=== PATIENT | male | born 1985 | race Hispanic/Latino ===

== ENCOUNTER 2017-09-10 01:55 | Emergency (ER) | payer SELFPAY ==
[~2017-09-10] VITALS: Ht 182.9 cm; Wt 115.6 kg
[2017-09-10 02:19] LABS: HEMATOCRIT 44.3 % (38.0-50.0); HEMOGLOBIN 15.4 G/DL (12.5-16.6); MCH 31.2 PG (29.0-34.0); MCHC 34.8 G/DL (30.0-36.0); MCV 89.7 FL (86-99); PLATELET COUNT 274 K/uL (156-360); RBC DIS.WIDTH-CV 12.8 % (11.8-14.6); RBC DIS.WIDTH-SD 41.6 % (39-53); RED BLOOD COUNT 4.94 M/uL (4.00-5.50); WHITE BLOOD COUNT 16.4 K/uL (4.1-10.2)
[2017-09-10 02:31] LABS: CHLORIDE 105 mEq/L (99-109); SODIUM 140 mEq/L (136-147)
[2017-09-10 02:33] LABS: GLUCOSE 102 mg/dL (70-99)
[2017-09-10 02:37] LABS: CREATININE 0.8 mg/dL (0.6-1.3); GFR ESTIMATE (CALCULATED) > 59 mL/min/ (58.99-99999)
[2017-09-10 02:38] LABS: UREA NITROGEN (BUN) 14 mg/dL (9-23)
[2017-09-10] MEDS ORDERED: VENTOLIN HFA18 GM IH (04:33)
[2017-09-10] MEDS ORDERED: PREDNISONE10 M1 PO (04:33)
[2017-09-10 04:55] VITALS: BP 168/99
== END 2017-09-10 04:56 | disposition home or self-care (01) ==
LOC: EME 01:55
DX: J45.901 Unspecified asthma with (acute) exacerbation (principal); F17.200 Nicotine dependence, unspecified, uncomplicated
CPT/HCPCS: 71046; 80048; 85027; 93005; 94640; 99281; 99283